=== PATIENT | male | born 1980 | race Caucasian/White ===

== ENCOUNTER 2023-10-26 16:55 | Emergency (ER) | payer SELFPAY ==
[~2023-10-26] VITALS: Ht 182.9 cm; Wt 95.0 kg
[2023-10-26 17:30] VITALS: BP 148/85; PULSE 89; RESP 18; TEMP 98.2; O2SAT 96
[2023-10-26] MEDS ORDERED: IVER3TAB2 MT (17:41)
[2023-10-26] MEDS ORDERED: PRED10TA MT (17:41)
== END 2023-10-26 18:00 | disposition home or self-care (01) ==
LOC: ER 16:55
DX: L29.9 Pruritus, unspecified (principal)
CPT/HCPCS: 99281